=== PATIENT | female | born 1975 | race Caucasian/White ===

== ENCOUNTER 2016-06-21 17:55 | Emergency (ER) | payer MEDICARE ==
[~2016-06-21] VITALS: Ht 165.1 cm; Wt 99.3 kg
[2016-06-21 17:59] VITALS: BP 144/95
--- NOTE | 2016-06-21 19:50 | NUR ---
PT TAKEN TO BED 4
--- NOTE | 2016-06-21 19:50 | NUR ---
Dr. Christensen evaluating patient at bedside.
[2016-06-21] MEDS ORDERED: NACL 0.9% 1,000 ML IV SCH (19:52)
[2016-06-21] MEDS ORDERED: FAMOTIDINE 20 MG/2 ML VIAL IVP ONE (19:55)
[2016-06-21] MEDS ORDERED: ONDANSETRON 4 MG/2 ML VIAL IVP ONE (19:55)
--- NOTE | 2016-06-21 20:00 | NUR ---
PT IS 40/F BIBA FOR EVALUATION OF ABDOMINAL PAIN X3 WEEKS. HX ASTHMA, DM, CHF, SEIZURE DISORDER, PSYCHIATRIC DISORDER.. DENIES N/V/D; SKIN IS PINK/WARM/DRY; AAOX4 WITH EVEN AND STEADY GAIT; LUNGS CLEAR BL; HR EVEN AND REGULAR; PT DENIES ANY FEVER, CP, SOB, OR COUGH AT THIS TIME; PATIENT STATES PAIN OF 10/10 AT THIS TIME; VSS; PATIENT POSITIONED FOR COMFORT; HOB ELEVATED; BEDRAILS UP X2; BED DOWN. ER MD MADE AWARE OF PT STATUS.
[2016-06-21 21:38] VITALS: BP 135/88
--- NOTE | 2016-06-21 21:38 | NUR ---
Patient discharged with v/s stable. Written and verbal after care instructions given and explained. Patient alert, oriented and verbalized understanding of instructions. Ambulatory with steady gait. All questions addressed prior to discharge. ID band removed. Patient advised to follow up with PMD. Rx of RANITIDINE AND LEVAQUIN given. Patient educated on indication of medication including possible reaction and side effects. Opportunity to ask questions provided and answered.
== END 2016-06-21 21:38 | disposition home or self-care (01) ==
LOC: MED 17:55
DX: K21.9 Gastro-esophageal reflux disease without esophagitis (principal); N39.0 Urinary tract infection, site not specified; R03.0 Elevated blood-pressure reading, without diagnosis of hypertension
CPT/HCPCS: 36415; 80053; 81001; 81025; 82150; 83690; 85025; 87086; 96361; 96374; 96375; 99284; J2405; J3490; J7030

== ENCOUNTER 2020-09-20 00:35 | Inpatient (IN) | payer MEDICAID, SELFPAY ==
[~2020-09-20] VITALS: Ht 167.6 cm; Wt 99.3 kg
--- NOTE | 2020-09-20 00:35 | NUR ---
PT DIANA BLS. TAKEN TO BED 6
[2020-09-20 00:40] VITALS: BP 141/82
--- NOTE | 2020-09-20 00:40 | NUR ---
Dr. Otero examining patient.
--- NOTE | 2020-09-20 00:40 | NUR ---
PT. is a 45 y/o female who came into the ED via [facility] accompanied by PD on 5150 for SI. SKIN IS PINK/WARM/DRY; AAOX4 WITH EVEN AND STEADY GAIT; HR EVEN AND REGULAR; PT DENIES ANY FEVER, CP, SOB, OR COUGH AT THIS TIME; PATIENT STATES PAIN OF 0/10 AT THIS TIME; VSS; PATIENT POSITIONED FOR COMFORT; HOB ELEVATED; BEDRAILS UP X2; BED DOWN. ER MD MADE AWARE OF PT STATUS. PMH: EPILIPESY, HYPERTENSION, DM 2 ALLERGIES: NKA
--- NOTE | 2020-09-20 00:54 | NUR ---
TELEPSYCH INITIATED PER DR. BERRY
[2020-09-20 00:57] LABS: BASOPHILS # (AUTO) 0.1 K/uL (0.00-0.22); BASOPHILS % (AUTO) 0.6 % (0.0-2.0); EOSINOPHILS # (AUTO) 0.1 K/uL (0-0.4); EOSINOPHILS % (AUTO) 1.5 % (0.0-4.0); HEMATOCRIT 41.8 % (36-48); HEMOGLOBIN 14.1 g/dL (12.0-16.0); LYMPHOCYTES # (AUTO) 3.7 K/uL (2.5-16.5); LYMPHOCYTES % (AUTO) 39.3 % (20.5-51.1); MEAN CORPUSCULAR HEMOGLOBIN 30 pg (27-31); MEAN CORPUSCULAR HGB CONC 34 g/dL (33-37); MEAN CORPUSCULAR VOLUME 88.6 fL (80-94); MONOCYTES # (AUTO) 0.9 K/uL (0.8-1.0); MONOCYTES % (AUTO) 9.8 % (1.7-9.3); NEUTROPHILS # (AUTO) 4.6 K/uL (1.8-7.7); NEUTROPHILS % (AUTO) 48.8 % (42.2-75.2); PLATELET COUNT (AUTO) 228 K/uL (140-450); RED BLOOD CELL COUNT(AUTO) 4.72 MIL/uL (4.20-5.40); RED CELL DISTRIBUTION WIDTH 15.3 % (11.6-13.7); WHITE BLOOD COUNT (AUTO) 9.5 K/uL (4.8-10.8)
--- NOTE | 2020-09-20 01:00 | NUR ---
SPOKE WITH ENGINEER, HERNANDEZ TRIPLETT .
--- NOTE | 2020-09-20 01:10 | NUR ---
EKG DONE. SINUS RHYTHM, HR = 86.
[2020-09-20 01:11] LABS: ALBUMIN 2.9 g/dL (3.4-5.0); ANION GAP 12.7 (8-16); ASPARTATE AMINOTRANSFERASE 26 U/L (15-37); CARBON DIOXIDE 27.6 mmol/L (21-32); CHLORIDE 104 mmol/L (98-107); GFR ARICAN-AMERICAN 77 mL/min (>90); GLUCOSE 251 mg/dL (74-106); POTASSIUM 4.3 mmol/L (3.5-5.1); SODIUM SERUM 140 mmol/L (136-145); TOTAL BILIRUBIN 0.2 mg/dL (0.0-1.0); UREA NITROGEN, BLOOD 17 mg/dL (7-18)
[2020-09-20 01:12] LABS: SALICYLATE < 2.8 mg/dL (2.8-20.0)
[2020-09-20 01:13] LABS: ACETAMINOPHEN < 0.5 ug/ml (10-30)
--- NOTE | 2020-09-20 01:52 | NUR ---
X-Ray at bedside.
--- NOTE | 2020-09-20 02:04 | NUR ---
TELEPSYCH IN PROGRESS
[2020-09-20 03:34] LABS: APPEARANCE,URINE CLEAR (CLEAR); BILIRUBIN,URINE NEGATIVE (NEGATIVE); BLOOD, URINE NEGATIVE (NEGATIVE); COLOR,URINE YELLOW (YELLOW); LEUKOCYTE ESTERASE ,URINE NEGATIVE (NEGATIVE); NITRITE, URINE NEGATIVE (NEGATIVE); UGLUCOSE NEGATIVE (NEGATIVE)
[2020-09-20 03:50] LABS: BARBITURATE, URINE NEGATIVE ng/ml (NEG <=200); BENZODIAZEPINE, URINE POSITIVE ng/mL (NEG <=200); CANNABINOID, URINE NEGATIVE ng/mL (NEG <=50); COCAINE, URINE NEGATIVE ng/mL (NEG <=300); OPIATE, URINE NEGATIVE ng/mL (NEG <=2000); PHENCYCLIDINE SCREEN,URINE NEGATIVE ng/mL (NEG <=25)
--- NOTE | 2020-09-20 04:10 | NUR ---
DARIN AND MARCELINO (COVRYAN) TAKEN TO LAB.
--- NOTE | 2020-09-20 05:03 | NUR ---
Packet received for placement. S/W Arjo regarding patient being conserved. Need paperwork. Arjo to consult with RN. In the meantime, packet has been fax to the following facilities [facility]
--- NOTE | 2020-09-20 07:49 | NUR ---
REPORT RECEIVED FROM MIKAYLA CHADWICK. ALL CARE TRANSFERRED AT THIS TIME.
[2020-09-20] MEDS ORDERED: ZOLPIDEM 5 MG TAB PO PRN (08:00)
[2020-09-20] MEDS ORDERED: guaiFENesin DM 200/20 MG-10 ML 10 ML UDC PO PRN (08:00)
[2020-09-20] MEDS ORDERED: POTASSIUM CHLORIDE 10 MEQ TABER PO PRN (08:00)
[2020-09-20] MEDS ORDERED: ONDANSETRON 4 MG/2 ML VIAL IM/IVP PRN (08:00)
[2020-09-20] MEDS ORDERED: HYDROcodone/APAP 7.5/325 MG 1 TAB PO PRN (08:00)
[2020-09-20] MEDS ORDERED: DOCUSATE SODIUM 100 MG GELCAP PO PRN (08:00)
[2020-09-20] MEDS ORDERED: ACETAMINOPHEN 325 MG TAB PO PRN (08:00)
[2020-09-20] MEDS ORDERED: DIVA500T1 PO (08:17)
[2020-09-20] MEDS ORDERED: ATA25 PO (08:17)
[2020-09-20] MEDS ORDERED: LORA10TA19 PO (08:17)
[2020-09-20] MEDS ORDERED: LORA-476 PO (08:17)
[2020-09-20] MEDS ORDERED: ESCI20TA PO (08:17)
[2020-09-20] MEDS ORDERED: PANT40EC PO (08:17)
[2020-09-20] MEDS ORDERED: DOCU-61 PO (08:17)
[2020-09-20] MEDS ORDERED: ASPI-1822 PO (08:17)
[2020-09-20] MEDS ORDERED: POTA10TE30 PO (08:17)
[2020-09-20] MEDS ORDERED: ATOR10TA PO (08:17)
[2020-09-20] MEDS ORDERED: CALC-575 PO (08:17)
[2020-09-20] MEDS ORDERED: ASCO500T95 PO (08:17)
[2020-09-20] MEDS ORDERED: OLAN2.5T1 PO (08:17)
[2020-09-20] MEDS ORDERED: FURO-572 PO (08:17)
--- NOTE | 2020-09-20 08:36 | NUR ---
REPORT CALLED TO MIKAYLA CARRANZA.
--- NOTE | 2020-09-20 08:56 | NUR ---
PATIENT HAS BEEN SCREENED AND CATEGORIZED LOW NUTRITION RISK. PATIENT WILL BE SEEN WITHIN 7 DAYS OF ADMISSION. 09/26/[address]
[2020-09-20 08:59] LABS: PROTHROMBIN TIME 10.6 secs (10.8-13.4)
[2020-09-20] MEDS ORDERED: LORazepam 1 MG TAB PO SCH (09:00)
[2020-09-20] MEDS ORDERED: FLUoxetine 20 MG CAP PO SCH (09:00)
[2020-09-20 09:05] LABS: CHOL/HDL RATIO 3.6 (1-4.5); FREE T4 (FREE THYROXINE) 0.7 ng/dL (0.76-1.46); MAGNESIUM 1.7 mg/dL (1.8-2.4); PHOSPHORUS 4.2 mg/dL (2.5-4.9); THYROID STIMULATING HORMONE 3.87 uIU/mL (0.34-3.74)
[2020-09-20] MEDS: PANTOPRAZOLE 40 MG TABEC PO SCH (09:09)
--- NOTE | 2020-09-20 09:35 | NUR ---
Patient will be admitted to care of DR KELLEY. Admited to [facility]. Will go to room 109B. Belongings list completed. Report to MIKAYLA CARRANZA.
--- NOTE | 2020-09-20 09:40 | NUR ---
PT ARRIVED FROM ED. PT ON 5150 HOLD FOR SUICIDAL IDEATION . A/0x4, RA. PT IS CURRENTLY CALM, COOPERATIVE, LUNGS CLEAR, S1S2, ABD SOFT NON TENDER, NO PERIPHERAL EDEMA NOTED. SEIZURE PRECAUTIONS IN PLACE ON BED. BED LOWEST POSITION. PT HAS L.WRIST SCRATCH ,NO SKIN LOSS. INTACT SKIN. R.AC 20G SL. WILL CONTINUE TO MONITOR PT HAS 1:1 SITTER.
[2020-09-20] MEDS ORDERED: LORazepam 1 MG TAB PO PRN (09:55)
--- NOTE | 2020-09-20 10:00 | NUR ---
MRSA LEFT AND RIGHT NARES SPECIMEN COLLECTED, PT TOLERATED PROCEDURE WELL.SENT TO LAB FOR PROCESSING
--- NOTE | 2020-09-20 10:13 | NUR ---
DC HEAD MEN'S TENNIS COACH: SPOKE TO PATIENTS AUTOMOBILE RADIO REPAIRER HERNANDEZ TRIPLETT [phone], HE PROVIDED TELEPHONE NUMBER FOR MILAGROS BUSH [phone] TIRE FABRIC INSPECTOR OF ALL AR[employer]. [facility]IENT [facility] AND HE STATED THAT PATIENT IS NOT CONSERVED. Addendum: 09/20/20 at 1053 by Alix Rothman CM DC HEAD MEN'S TENNIS COACH: RECEIVED A PHONE CALL FROM ANNALISE AT [facility]. THEY MAY BE ABLE TO ACCEPT THIS PATIENT. WILL FOLLOW UP. PER DR. KELLEY PATIENT IS NOT MEDICALLY CLEARED FOR DC TODAY POSSIBLE DC TOMORROW. IF [facility] IS ABLE TO ACCEPT I WILL ARRANGE WILL CALL TRANSPORTATION WITH [facility]. Addendum: 09/20/20 at 1155 by Alix Rothman CM DC HEAD MEN'S TENNIS COACH: PER ANNALISE AT [facility] HE STATED THAT WHEN PATIENT IS CLEARED TO FAX ORDER AND HE WILL PROVIDE A ROOM NUMBER. Addendum: 09/20/20 at 1442 by Alix Rothman CM EDUIN HEAD MEN'S TENNIS COACH: ARRANGED WILL CALL TRANSPORTATION WITH [facility] [phone]. PENDING BED NUMBER AND ACCEPTING
--- NOTE | 2020-09-20 10:31 | NUR ---
S/w Clifford at [facility], informed him that patient still needs placement. Clifford will review the chart.
--- NOTE | 2020-09-20 10:32 | NUR ---
SPOKE TO ANNALISE FROM [facility], ADMITTING NURSE WHO IS DOING ASSESSMENT FOR POSSIBLE PLACEMENT
--- NOTE | 2020-09-20 10:48 | NUR ---
ADMINISTERED MEDICATION PER MD ORDER. MOA AND SIDE EFFECTS EXPLAINED TO PT, SHE VERBALIZED UNDERSTANDING, WILL CONTINUE TO MONITOR. SITTER AT BEDSIDE
--- NOTE | 2020-09-20 12:55 | NUR ---
PT AWAKE, RESTING, SITTING UP IN BED NO SIGN OF DISCOMFORT. ALL SAFETY MEASURES ARE IN PLACE
--- NOTE | 2020-09-20 13:55 | NUR ---
PT LEFT FOR IMAGING VIA WHEELCHAIR ACCOMPANIED BY SITTER.
[2020-09-20 16:00] VITALS: BP 137/64
--- NOTE | 2020-09-20 16:02 | NUR ---
PT RETURNED, STABLE NO SIGN OF DISTRESS. ALL SAFETY MEASURE IN PLACE Addendum: 09/20/20 at 1711 by Chayo Milner RN RN PT RETURNED AT 1402
--- NOTE | 2020-09-20 17:08 | NUR ---
PT SLEEPING, NO SIGN OF DISTRESS
[2020-09-20] MEDS ORDERED: DEXTROSE 50% 50 ML SYR IVP PRN (18:00)
[2020-09-20] MEDS ORDERED: INSULIN LISPRO SLIDING SCALE 100 UNITS/ML VIAL SUBQ PRN (18:00)
--- NOTE | 2020-09-20 18:30 | NUR ---
PT SLEEPING NO SIGN OF DISTRESS, ALL SAFETY MEASURES IN PLACE
--- NOTE | 2020-09-20 19:07 | NUR ---
RECEIVED PATIENT FROM AM SHIFT NURSE FOR CONTINUITY OF CARE. ALERT, ABLE TO MAKE NEEDS KNOWN. DENIES FEELINGS OF SELF HARM. DENIES AUDITORY/VISUAL HALLUCINATIONS AT THIS TIME. RESPIRATIONS EVEN, UNLABORED. NO S/S RESPIRATORY DISTRESS. S1/S2 AUSCULTATED. NO C/O PAIN. NO S/S ACUTE DISTRESS. SKIN WARM, DRY. SALINE LOCK TO RIGHT AC 20G PATENT/INTACT. ABDOMEN SOFT, NONTENDER, NONDISTENDED. BOWEL SOUNDS ACTIVE x4 QUADRANTS. PATIENT IS CONTINENT OF B/B. PLAN OF CARE DISCUSSED. SITTER AT BEDSIDE.
--- NOTE | 2020-09-20 19:07 | NUR ---
ENDORSED PT TO SUPERVISOR LIVESTOCK YARD NURSE, PT SLEEPING. NO SIGN OF DISTRESS. ALL SAFETY MEASURES IN PLACE.
[2020-09-20] MEDS: BLOOD GLUCOSE MONITORING 1 DEV DEV FS SCH (20:14)
[2020-09-20] MEDS ORDERED: OLANZapine 2.5 MG TAB PO SCH (21:00)
[2020-09-20] MEDS ORDERED: ATORVASTATIN 20 MG TAB PO SCH (21:00)
--- NOTE | 2020-09-20 21:16 | NUR ---
DUE MEDS GIVEN. PATIENT RESTING COMFORTABLY IN BED. NO S/S RESPIRATORY DISTRESS. NO C/O PAIN. NO S/S ACUTE DISTRESS. SITTER AT BEDSIDE.
--- NOTE | 2020-09-20 23:00 | NUR ---
PATIENT EATING SNACKS AT BEDSIDE. COOPERATIVE MOOD. SITTER AT BEDSIDE.
[2020-09-21] VITALS: BP 158/92
--- NOTE | 2020-09-21 01:00 | NUR ---
MADE ROUNDS. PATIENT IS ASLEEP. NO S/S ACUTE DISTRESS. SITTER AT BEDSIDE.
--- NOTE | 2020-09-21 03:49 | NUR ---
PATIENT IS ASLEEP. NO S/S ACUTE DISTRESS. SITTER AT BEDSIDE.
--- NOTE | 2020-09-21 05:21 | NUR ---
Called [facility] for update on packet. S/W TITO June who stated that patient will be accepted once medically cleared. from [facility] wants 24 observation before acceptance. No notes on system on who they spoke to. Once medically cleared, please call [facility] at [phone]
--- NOTE | 2020-09-21 05:56 | NUR ---
PATIENT IS RESTING COMFORTABLY IN BED. NO C/O PAIN. NO S/S RESPIRATORY DISTRESS. NO S/S ACUTE DISTRESS. DENIES VERBAL/AUDITORY HALLUCINATIONS. DENIES INTRUSIVE THOUGHTS OF SELF HARM. SITTER AT BEDSIDE.
[2020-09-21] MEDS: BLOOD GLUCOSE MONITORING 1 DEV DEV FS SCH ×2 (06:31→11:13)
[2020-09-21 06:44] LABS: BASOPHILS # (AUTO) 0.1 K/uL (0.00-0.22); BASOPHILS % (AUTO) 0.5 % (0.0-2.0); EOSINOPHILS # (AUTO) 0.2 K/uL (0-0.4); EOSINOPHILS % (AUTO) 1.6 % (0.0-4.0); HEMATOCRIT 41.1 % (36-48); HEMOGLOBIN 13.8 g/dL (12.0-16.0); LYMPHOCYTES % (AUTO) 41.2 % (20.5-51.1); MEAN CORPUSCULAR HEMOGLOBIN 30 pg (27-31); MEAN CORPUSCULAR HGB CONC 34 g/dL (33-37); MEAN CORPUSCULAR VOLUME 88.8 fL (80-94); MONOCYTES # (AUTO) 1.3 K/uL (0.8-1.0); NEUTROPHILS # (AUTO) 4.2 K/uL (1.8-7.7); NEUTROPHILS % (AUTO) 43.7 % (42.2-75.2); PLATELET COUNT (AUTO) 211 K/uL (140-450); RED BLOOD CELL COUNT(AUTO) 4.62 MIL/uL (4.20-5.40); RED CELL DISTRIBUTION WIDTH 15.6 % (11.6-13.7); WHITE BLOOD COUNT (AUTO) 9.7 K/uL (4.8-10.8)
[2020-09-21 06:56] LABS: ANION GAP 11.2 (8-16); CARBON DIOXIDE 27.8 mmol/L (21-32); CREATININE 0.8 mg/dL (0.6-1.3)
--- NOTE | 2020-09-21 07:30 | NUR ---
RECEIVED BEDSIDE REPORT FROM CRANE CREW SUPERVISOR NURSE FOR CONTINUITY OF CARE. ALERT, ABLE TO MAKE NEEDS KNOWN. RESPIRATIONS EVEN, UNLABORED. NO S/S RESPIRATORY DISTRESS ON ROOM AIR. DENIES PAIN AT THE MOMENT. SKIN WARM, DRY. HAS RIGHT AC 20G SALINE LOCKED. PATENT/INTACT. DENIES FEELINGS OF SELF HARM AND AUDITORY/VISUAL HALLUCINATIONS AT THIS TIME. PATIENT IS CONTINENT OF B/B. PLAN OF CARE DISCUSSED. SITTER AT BEDSIDE. WILL CONTINUE TO MONITOR.
[2020-09-21 08:00] VITALS: BP 127/67
[2020-09-21] MEDS ORDERED: ESCITALOPRAM 20 MG TAB PO SCH (09:00)
[2020-09-21] MEDS ORDERED: FUROSEMIDE 20 MG TAB PO SCH (09:00)
[2020-09-21] MEDS ORDERED: DIVALPROEX 500 MG TABER PO SCH (09:00)
[2020-09-21] MEDS ORDERED: ASPIRIN 81 MG TAB.CHEW PO SCH (09:00)
[2020-09-21] MEDS: PANTOPRAZOLE 40 MG TABEC PO SCH (09:26)
--- NOTE | 2020-09-21 09:40 | NUR ---
ALL SCHEDULED MEDS GIVEN. PT IS STABLE. NO DISTRESS NOTED. WILL CONTINUE TO MONITOR.
--- NOTE | 2020-09-21 11:55 | NUR ---
GAVE REPORT TO MIKAYLA BEDOLLA AT [facility]. NOTIFIED HER THAT [facility] WOULD BE TRANSPORTING HER TO THE FACILITY.
--- NOTE | 2020-09-21 12:11 | NUR ---
[facility] WOULD BE ARRIVING AT 1400 TO TRANSFER PATIENT TO [facility].
[2020-09-21 12:14] VITALS: BP 127/67
--- NOTE | 2020-09-21 13:20 | NUR ---
NOTIFIED PATIENT'S PLATE GAUGER MILAGROS BUSH THAT PATIENT WILL BE TRANSFERRED TO [facility].
--- NOTE | 2020-09-21 14:00 | NUR ---
ENDORSED TO PATIENT DISCHARGE INSTRUCTIONS. PATIENT VERBALIZED UNDERSTANDING AND SIGNED THE FORMS. AWAITING FOR [facility] TO PICK PT UP.
--- NOTE | 2020-09-21 14:20 | NUR ---
PT DISCHARGE OFF THE UNIT. WAS PICKED UP BY [facility]SP[facility] TO BE TRANSPORTED TO [facility] IN ROOM [address] AND [address] SANDS. PT WAS STABLE PRIOR TO DISCHARGE.
[2020-09-21] MEDS ORDERED: SYN.05 PO (14:55)
[2020-09-21] MEDS ORDERED: METF850T PO (14:55)
--- NOTE | 2020-09-21 15:15 | NUR ---
@2673 hrs: CONTACTED AIDANINA SAMMY (#[phone]), SPOKE WITH CHU-POLICYHOLDER INFORMATION CLERK REGARDING PT'S TRANSFER. PER CHU, PT IS GOING TO ROOM [address] AND [address] ONOFRE. @1200 HRS: [facility] WILL CALL ACTIVATED, SPOKE WITH TYESHA SALEEM ETA WILL BE AT 2PM TODAY. RN ASSIGNED MADE AWARE.
--- NOTE | 2020-09-21 16:00 | NUR ---
NEW PRESCRIPTION WAS ADDED TO PATIENT'S DISCHARGE. PATIENT WAS ALREADY OFF THE UNIT. CONTACTED MIKAYLA BEDOLLA AT [facility] AND NOTIFIED OF THE NEW PRESCRIPTION. SHE IS AWARE AND WILL SEND THE NEW PRESCRIPTIONS VIA FAX TO [facility].
[2020-09-22 06:07] LABS: T4 (THYROXINE) 5.6 ug/dL (4.5-12.0)
== END 2020-09-21 14:20 | DRG 52 ==
LOC: MED 00:35 → MMU 07:27 → MTU 08:09
PROVIDERS: ADMIT Family Medicine; ATTEND Family Medicine
DX: G93.41 Metabolic encephalopathy (principal); E44.0 Moderate protein-calorie malnutrition; E11.65 Type 2 diabetes mellitus with hyperglycemia; E83.42 Hypomagnesemia; E86.0 Dehydration; E03.9 Hypothyroidism, unspecified; E78.5 Hyperlipidemia, unspecified; I10 Essential (primary) hypertension; F32.9 Major depressive disorder, single episode, unspecified; F41.9 Anxiety disorder, unspecified; Z20.822 Contact with and (suspected) exposure to COVID-19; G40.909 Epilepsy, unspecified, not intractable, without status epilepticus; S61.512A Laceration without foreign body of left wrist, initial encounter; K21.9 Gastro-esophageal reflux disease without esophagitis; F39 Unspecified mood [affective] disorder; F25.1 Schizoaffective disorder, depressive type; X78.1XXA Intentional self-harm by knife, initial encounter; Y93.89 Activity, other specified; Y92.89 Other specified places as the place of occurrence of the external cause; Y99.8 Other external cause status; Z68.35 Body mass index [BMI] 35.0-35.9, adult
CPT/HCPCS: 36415; 70450; 71045; 80048; 80053; 80305; 81003; 81025; 82150; 82550; 82948; 83036; 83690; 83735; 83880; 84100; 84436; 84439; 84443; 84479; 84484; 85025; 85610; 85730; 87081; 93005; 99285; G0480; G0482; U0003

== ENCOUNTER 2020-11-24 16:52 | Emergency (ER) | payer OTHER, SELFPAY ==
[~2020-11-24] VITALS: Ht 160 cm; Wt 118.8 kg
[~2020-11-24 16:52] MED LIST: ASCO500T95 PO; ASPI-1822 PO; ATA25 PO; ATOR10TA PO; CALC-575 PO; DIVA500T1 PO; DOCU-61 PO; ESCI20TA PO; FURO-572 PO; LORA-476 PO; LORA10TA19 PO; METF850T PO; OLAN2.5T1 PO; PANT40EC PO; POTA10TE30 PO; SYN.05 PO
[2020-11-24 17:17] VITALS: BP 191/123
[2020-11-24] MEDS ORDERED: ONDANSETRON 4 MG ODT PO ONE (17:35)
[2020-11-24] MEDS ORDERED: ONDA8TAB87 PO (17:57)
[2020-11-24 18:05] VITALS: BP 155/84
== END 2020-11-24 18:05 | disposition home or self-care (01) ==
LOC: MED 16:52
DX: R11.2 Nausea with vomiting, unspecified (principal); J45.909 Unspecified asthma, uncomplicated; E11.9 Type 2 diabetes mellitus without complications; I10 Essential (primary) hypertension; Z79.899 Other long term (current) drug therapy; Z79.82 Long term (current) use of aspirin
CPT/HCPCS: 99283; Q0162